=== PATIENT | female | born 1940 | race Hispanic/Latino ===

== ENCOUNTER 2016-11-25 06:38 | Outpatient (CLI) | payer MEDICARE ==
--- NOTE | 2016-11-25 10:28 | PET Report ---
PET/CT:11/25/16 06:38:00 CLINICAL: Breast cancer restaging. RADIOPHARMACEUTICAL: 14.85mCi F18-FDG. COMPARISON: 08/12/16 PET/CT TECHNIQUE- Following intravenous injection of F-18 FDG and an approximately 60 minute uptake period, CT and PET images from the mid skull to the upper thighs were acquired with the patient in the fasted state. No contrast was administered. The CT protocol used for this PET CT study is designed for attenuation correction and anatomic localization of PET abnormalities. This lifestyle coordinator CT is not desired to produce and cannot replace, yvpwq-as-egb-art diagnostic CT scans with specific imaging protocols for different body parts and indications. Plasma glucose at the time of this test: 116g/dl. The standardized uptake values (SUV) are normalized to patient body weight and indicate the highest activity concentration (SUV max) in a given disease site. FINDINGS: Brain--Physiologic FDG uptake in the visualized regions of the brain. Neck--Physiologic FDG uptake . Chest--Physiologic FDG uptake in mediastinal blood pool and myocardium. Lungs--No abnormal uptake. No pulmonary nodule or mass. Stable right upper lobe post radiation scar. Pleura/pericardium--No abnormal uptake. Thoracic nodes--No abnormal uptake. Hepatobiliary--No abnormal uptake. Liver background SUV mean, as a reference for comparing FDG studies, is 4.0 compared to 4.0 on the last exam. No liver mass. Spleen--No abnormal uptake. Pancreas--No abnormal uptake. Adrenal Glands--No abnormal uptake. Kidneys/Ureters/Bladder--No abnormal uptake. Abdominopelvic Nodes--No abnormal uptake. Bowel/Peritoneum/Mesentery--No abnormal uptake. Pelvic organs--No abnormal uptake. Bones/Soft Tissues--No abnormal uptake. No suspicious bone lesions. Other findings: Status post bilateral mastectomy. Left Fsipjm-d-Ughr tip is in the distal left brachycephalic vein at the junction with the SVC. IMPRESSION- Negative study.
== END 2016-11-25 06:39 | disposition home or self-care (01) ==
LOC: PET 06:38
PROVIDERS: ATTEND Internal Medicine Hematology & Oncology
DX: C50.811 Malignant neoplasm of overlapping sites of right female breast (principal); Z90.13 Acquired absence of bilateral breasts and nipples
CPT/HCPCS: 78815; 82962; A9552

== ENCOUNTER 2017-03-03 11:32 | Outpatient (CLI) | payer MEDICARE | END 2017-03-03 11:33 | disposition home or self-care (01) | LOC: PET 11:32 | PROVIDERS: ATTEND Internal Medicine Hematology & Oncology | DX: C50.811 Malignant neoplasm of overlapping sites of right female breast (principal); I10 Essential (primary) hypertension; E78.00 Pure hypercholesterolemia, unspecified; I25.10 Atherosclerotic heart disease of native coronary artery without angina pectoris; Z87.891 Personal history of nicotine dependence; Z79.899 Other long term (current) drug therapy | CPT/HCPCS: 82962 ==

== ENCOUNTER 2017-03-24 10:02 | Outpatient (CLI) | payer MEDICARE ==
--- NOTE | 2017-03-25 08:08 | PET Report ---
PET SB TO MT SUBSEQUENT: HISTORY: Restaging of right breast cancer. TECHNIQUE: 15.75 millicuries F-18 FDG was administered intravenously. Noncontrast CT images and PET images were obtained from the skull base to the proximal thighs. Fused images were reviewed on a workstation. The patient's blood glucose level measured 94. COMPARISON: 11/25/16. FINDINGS: BRAIN: physiologic FDG uptake in the imaged brain. NECK: physiologic FDG uptake. MEDIASTINUM: physiologic FDG uptake. LUNGS: physiologic FDG uptake. PLEURA/PERICARDIUM: physiologic FDG uptake. THORACIC LYMPH NODES: physiologic FDG uptake. CHEST WALL: Bilateral mastectomy changes are stable. No recurrent chest wall mass or abnormal activity. HEPATOBILIARY: physiologic FDG uptake. Mean liver SUV measures 4.5. PANCREAS: physiologic FDG uptake. SPLEEN: physiologic FDG uptake. ADRENAL GLANDS: physiologic FDG uptake. KIDNEYS/RENAL COLLECTING SYSTEMS: physiologic FDG uptake. BOWEL/MESENTERY: physiologic FDG uptake. PELVIC VISCERA: physiologic FDG uptake. ABDOMINAL/PELVIC LYMPH NODES: physiologic FDG uptake. MUSCULOSKELETAL: physiologic FDG uptake. IMPRESSION: Negative PET/CT. No significant change since 11/25/16.
== END 2017-03-24 10:03 | disposition home or self-care (01) ==
LOC: PET 10:02
PROVIDERS: ATTEND Internal Medicine Hematology & Oncology
DX: C50.811 Malignant neoplasm of overlapping sites of right female breast (principal); I10 Essential (primary) hypertension; E78.00 Pure hypercholesterolemia, unspecified; I25.10 Atherosclerotic heart disease of native coronary artery without angina pectoris; Z90.13 Acquired absence of bilateral breasts and nipples; Z87.891 Personal history of nicotine dependence
CPT/HCPCS: 78815; 82962; A9552

== ENCOUNTER 2017-08-25 07:53 | Outpatient (CLI) | payer MEDICARE ==
--- NOTE | 2017-08-26 09:12 | PET Report ---
PET SB TO MT SUBSEQUENT: HISTORY: Restaging of right breast cancer. TECHNIQUE: 12.8 millicuries F-18 FDG was administered intravenously. Noncontrast CT images and PET images were obtained from the skull base to the proximal thighs. Fused images were reviewed on a workstation. The patient's blood glucose level measured 105. COMPARISON: 03/24/17. FINDINGS: BRAIN: physiologic FDG uptake in the imaged brain. NECK: physiologic FDG uptake. CHEST WALL: Stable bilateral mastectomy changes. No recurrent chest wall mass or hypermetabolic activity. MEDIASTINUM: physiologic FDG uptake. LUNGS: physiologic FDG uptake. PLEURA/PERICARDIUM: physiologic FDG uptake. THORACIC LYMPH NODES: physiologic FDG uptake. HEPATOBILIARY: physiologic FDG uptake. Mean liver SUV measures 3.4 as opposed to 4.3 on the previous exam. PANCREAS: physiologic FDG uptake. SPLEEN: physiologic FDG uptake. ADRENAL GLANDS: physiologic FDG uptake. KIDNEYS/RENAL COLLECTING SYSTEMS: physiologic FDG uptake. BOWEL/MESENTERY: physiologic FDG uptake. PELVIC VISCERA: physiologic FDG uptake. ABDOMINAL/PELVIC LYMPH NODES: physiologic FDG uptake. MUSCULOSKELETAL: physiologic FDG uptake. IMPRESSION: Negative PET/CT. No change since 03/24/17.
== END 2017-08-25 07:54 | disposition home or self-care (01) ==
LOC: PET 07:53
PROVIDERS: ATTEND Internal Medicine Hematology & Oncology
DX: C50.811 Malignant neoplasm of overlapping sites of right female breast (principal); Z90.13 Acquired absence of bilateral breasts and nipples; Z87.891 Personal history of nicotine dependence; Z79.899 Other long term (current) drug therapy
CPT/HCPCS: 78815; 82962; A9552

== ENCOUNTER 2018-01-12 09:38 | Outpatient (CLI) | payer MEDICARE ==
--- NOTE | 2018-01-12 14:44 | PET Report ---
PET SB TO MT SUBSEQUENT: HISTORY: Restaging of breast cancer. TECHNIQUE: 15.3 millicuries F-18 FDG was administered intravenously. Noncontrast CT images and PET images were obtained from the skull base to the proximal thighs. Fused images were reviewed on a workstation. The patient's blood glucose level measured 88. COMPARISON: 08/25/17. FINDINGS: BRAIN: physiologic FDG uptake in the imaged brain. NECK: physiologic FDG uptake. CHEST WALL: physiologic FDG uptake. Stable bilateral mastectomy changes. MEDIASTINUM: physiologic FDG uptake. LUNGS: physiologic FDG uptake. PLEURA/PERICARDIUM: physiologic FDG uptake. THORACIC LYMPH NODES: physiologic FDG uptake. HEPATOBILIARY: physiologic FDG uptake. Mean liver SUV measures 3.4 as opposed to 3.5 on the previous exam. PANCREAS: physiologic FDG uptake. SPLEEN: physiologic FDG uptake. ADRENAL GLANDS: physiologic FDG uptake. KIDNEYS/RENAL COLLECTING SYSTEMS: physiologic FDG uptake. BOWEL/MESENTERY: physiologic FDG uptake. PELVIC VISCERA: physiologic FDG uptake. Hysterectomy changes are noted. ABDOMINAL/PELVIC LYMPH NODES: physiologic FDG uptake. MUSCULOSKELETAL: physiologic FDG uptake. IMPRESSION: Negative PET/CT. No change since 08/25/17.
== END 2018-01-12 09:39 | disposition home or self-care (01) ==
LOC: PET 09:38
PROVIDERS: ATTEND Internal Medicine Hematology & Oncology
DX: C50.811 Malignant neoplasm of overlapping sites of right female breast (principal); I10 Essential (primary) hypertension; E78.00 Pure hypercholesterolemia, unspecified; Z90.13 Acquired absence of bilateral breasts and nipples; Z90.710 Acquired absence of both cervix and uterus; Z87.891 Personal history of nicotine dependence
CPT/HCPCS: 78815; 82962; A9552

== ENCOUNTER 2018-10-19 11:10 | Outpatient (CLI) | payer MEDICARE ==
--- NOTE | 2018-10-19 22:15 | Vascular Lab Report ---
PROCEDURE: VL VENOUS DUPLEX UE RT TECHNIQUE: Routine Doppler compression imaging was obtained of the deep venous system of the right u pper extremity extending from the internal jugular vein and subclavian vein distally to include the c ephalic and ulnar veins. Augmentation maneuvers and waveforms were recorded. HISTORY: Pain in right arm COMPARISONS: None FINDINGS: All of the veins compress normally. The waveforms appear normal. IMPRESSION: Normal exam. No evidence of DVT in the right upper extremity.. This document is electronically signed by Jono Manzano MD., October 19 2018 10:13:05 PM ET
--- NOTE | 2018-10-20 08:10 | PET Report ---
PET SB TO MT SUBSEQUENT: HISTORY: Restaging of right breast cancer. TECHNIQUE: 15.1 millicuries F-18 FDG was administered intravenously. Noncontrast CT images and PET images were obtained from the skull base to the proximal thighs. Fused images were reviewed on a workstation. The patient's blood glucose level measured 75. COMPARISON: 07/06/18. FINDINGS: BRAIN: physiologic FDG uptake in the imaged brain. NECK: physiologic FDG uptake. Previously described asymmetric uptake in the submandibular glands has resolved. CHEST WALL: physiologic FDG uptake. Stable bilateral mastectomy changes. No recurrent chest wall mass or thoracic adenopathy. MEDIASTINUM: physiologic FDG uptake. LUNGS: physiologic FDG uptake. Stable appearance of the linear scarring and subtle reticulonodular opacities in the right upper lobe. This is presumably secondary to radiation changes or possibly inflammation. Max SUV in these areas ranges from 1.8-2.6. No new suspicious pulmonary nodule is detected. PLEURA/PERICARDIUM: physiologic FDG uptake. THORACIC LYMPH NODES: physiologic FDG uptake. HEPATOBILIARY: physiologic FDG uptake. Mean liver SUV measures 3.5. PANCREAS: physiologic FDG uptake. SPLEEN: physiologic FDG uptake. ADRENAL GLANDS: physiologic FDG uptake. KIDNEYS/RENAL COLLECTING SYSTEMS: physiologic FDG uptake. BOWEL/MESENTERY: physiologic FDG uptake. PELVIC VISCERA: physiologic FDG uptake. ABDOMINAL/PELVIC LYMPH NODES: physiologic FDG uptake. MUSCULOSKELETAL: physiologic FDG uptake. IMPRESSION: No significant change since 07/06/18. No evidence for disease recurrence or metastasis. Stable right upper lobe findings as outlined above.
== END 2018-10-19 11:11 | disposition home or self-care (01) ==
LOC: PET 11:10
PROVIDERS: ATTEND Internal Medicine Hematology & Oncology
DX: C50.811 Malignant neoplasm of overlapping sites of right female breast (principal); I10 Essential (primary) hypertension; E78.00 Pure hypercholesterolemia, unspecified; Z90.710 Acquired absence of both cervix and uterus; Z87.891 Personal history of nicotine dependence
CPT/HCPCS: 78815; 82962; 93971; A9552

== ENCOUNTER 2019-01-11 08:58 | Outpatient (CLI) | payer MEDICARE ==
--- NOTE | 2019-01-17 08:51 | PET Report ---
PET/CT:01/11/19 08:58:00 CLINICAL: Breast cancer restaging. RADIOPHARMACEUTICAL: 14.197mCi F18-FDG. COMPARISON: 10/19/18 PET/CT TECHNIQUE- Following intravenous injection of F-18 FDG and an approximately 60 minute uptake period, CT and PET images from the mid skull to the upper thighs were acquired with the patient in the fasted state. No contrast was administered. The CT protocol used for this PET CT study is designed for attenuation correction and anatomic localization of PET abnormalities. This welt slasher CT is not desired to produce and cannot replace, loxxf-oy-gga-art diagnostic CT scans with specific imaging protocols for different body parts and indications. Plasma glucose at the time of this test: 99g/dl. The standardized uptake values (SUV) are normalized to patient body weight and indicate the highest activity concentration (SUV max) in a given disease site. FINDINGS: Brain--Physiologic FDG uptake in the visualized regions of the brain. Neck--Physiologic FDG uptake in mucosal structures. No mass or lymphadenopathy. Chest--Physiologic FDG uptake in mediastinal blood pool and myocardium. Status post bilateral mastectomy. Lungs--No abnormal uptake. Stable right upper lobe non-FDG avid reticulonodular lung opacities. No pulmonary nodule or mass. Pleura/pericardium--No abnormal uptake. Thoracic nodes--No abnormal uptake. Hepatobiliary--No abnormal uptake. Liver background SUV mean, as a reference for comparing FDG studies, is 4.0 compared to 3.5 on the last exam. No liver mass. Spleen--No abnormal uptake. Pancreas--No abnormal uptake. Adrenal Glands--No abnormal uptake. Kidneys/Ureters/Bladder--No abnormal uptake. Abdominopelvic Nodes--No abnormal uptake. Bowel/Peritoneum/Mesentery--No abnormal uptake. Pelvic organs--No abnormal uptake. Bones/Soft Tissues--No abnormal uptake and no suspicious bone lesion. IMPRESSION- Negative study.No evidence of disease recurrence or metastasis. This
== END 2019-01-11 08:59 | disposition home or self-care (01) ==
LOC: PET 08:58
PROVIDERS: ATTEND Internal Medicine Hematology & Oncology
DX: C50.811 Malignant neoplasm of overlapping sites of right female breast (principal); E78.00 Pure hypercholesterolemia, unspecified; I10 Essential (primary) hypertension; Z90.710 Acquired absence of both cervix and uterus
CPT/HCPCS: 78815; 82962; A9552

== ENCOUNTER 2019-05-03 07:56 | Outpatient (CLI) | payer MEDICARE ==
--- NOTE | 2019-05-03 11:10 | PET Report ---
PET/CT HISTORY: C50.811. Restaging of breast cancer TECHNIQUE: The patient's fasting blood glucose was 102. The patient weighed 150 lbs. The patient w as injected with 14.6 mCi of FDG in the left hand at 0835 hours and imaging was started at 0923 hours . The patient was imaged from the skull base to the thighs. All CT scans at this location are perfor med using CT dose reduction for ALARA by means of automated exposure control. Images were reviewed on a workstation. COMPARISON: 01/11/2019 FINDINGS: IMAGED BRAIN: [Physiologic FDG uptake] NECK: [Physiologic FDG uptake] CHEST WALL: [Physiologic FDG uptake]. Stable bilateral mastectomy changes. MEDIASTINUM: [Physiologic FDG uptake] LUNGS: [Physiologic FDG uptake] HEPATOBILIARY: [Physiologic FDG uptake]. Liver uptake measures 4.2 as opposed to 4.0 on the previous exam. PANCREAS: [Physiologic FDG uptake SPLEEN: [Physiologic FDG uptake] KIDNEYS/BLADDER: [Physiologic FDG uptake] ADRENAL GLANDS: [Physiologic FDG uptake] GI/MESENTERY: [Physiologic FDG uptake] PELVIC VISCERA: [Physiologic FDG uptake]. Hysterectomy changes are noted. LYMPH NODES: [Physiologic FDG uptake]. No lymphadenopathy is identified. OSSEOUS STRUCTURES: [Physiologic FDG uptake] ADDITIONAL FINDINGS: [None] IMPRESSION: Negative PET CT. No evidence for disease recurrence or metastasis. Stable findings since 01/11/2019. Signer Name: Martin Todd Jr, MD Signed: 05/03/2019 11:05 AM Workstation Name: [id number]
== END 2019-05-03 07:57 | disposition home or self-care (01) ==
LOC: PET 07:56
PROVIDERS: ATTEND Internal Medicine Hematology & Oncology
DX: C50.811 Malignant neoplasm of overlapping sites of right female breast (principal); E78.5 Hyperlipidemia, unspecified
CPT/HCPCS: 78815; 82962; A9552

== ENCOUNTER 2019-10-11 08:30 | Outpatient (CLI) | payer MEDICARE ==
--- NOTE | 2019-10-11 11:38 | PET Report ---
PET-CT SCAN INDICATION / CLINICAL INFORMATION: History of right breast cancer.. COMPARISON: 05/03/2019, 01/11/2019, 10/19/2018. TECHNIQUE: Tumor imaging, positron emission tomography (PET) with concurrently acquired computed tomography (CT) for attenuation correction and anatomical localization; Skull Base to Mid Thigh DOSE: 11.69 mCi F-18 FDG was administered intravenously per protocol in the left hand. GLUCOSE: Patient's blood glucose at that time was 63 mg/dL. UPTAKE TIME: PET scan performed approximately 60 minutes after radiotracer administration. CT SCAN DESCRIPTION: No oral or IV contrast.. All CT scans at this location are performed using CT do se reduction for ALARA by means of automated exposure control. COMPARISON: None available. FINDINGS: Background right hepatic lobe activity has a maximum SUV of 4. HEAD/NECK: No abnormal radiotracer uptake in the neck. Physiologic tonsillar and salivary gland activ ity noted. CHEST: No abnormal radiotracer uptake in the chest. Physiologic cardiac activity noted. Stable areas of reticular densities within the posterior and anterior right upper lobe. The appearance is favored to represent radiation treatment related changes given the patient's history of right breast cancer. Relative stability over multiple prior exams would support a benign etiology. Patient is status post bilateral mastectomies. ABDOMEN / PELVIS: No abnormal radiotracer uptake in the abdomen. Physiologic stomach and bowel activi ty noted. SKELETAL STRUCTURES: No hypermetabolic bone lesions. ADDITIONAL FINDINGS: No significant additional findings. IMPRESSION: Stable PET CT. No evidence of disease recurrence or metastases. Signer Name: Mumtaz Egan MD Signed: 10/11/2019 11:34 AM Workstation Name: [id number]
== END 2019-10-11 08:31 | disposition home or self-care (01) ==
LOC: PET 08:30
PROVIDERS: ATTEND Internal Medicine Hematology & Oncology
DX: C50.811 Malignant neoplasm of overlapping sites of right female breast (principal)
CPT/HCPCS: 78815; 82962; A9552

== ENCOUNTER 2020-03-13 07:13 | Outpatient (CLI) | payer MEDICARE ==
--- NOTE | 2020-03-13 10:45 | PET Report ---
PET/CT HISTORY: C50.811. Restaging of breast cancer TECHNIQUE: The patient's fasting blood glucose was 102. The patient weighed 150 lbs. The patient w as injected with 14.0 mCi of FDG in the left wrist at 0747 hours and imaging was started at 0836 hour s. The patient was imaged from the skull base to the thighs. All CT scans at this location are perfo rmed using CT dose reduction for ALARA by means of automated exposure control. Images were reviewed o n a workstation. COMPARISON: 10/11/2019 FINDINGS: IMAGED BRAIN: Physiologic FDG uptake. NECK: Physiologic FDG uptake. CHEST WALL: Physiologic FDG uptake. Stable bilateral mastectomy changes. MEDIASTINUM: Physiologic FDG uptake. LUNGS: Physiologic FDG uptake. Minimal interstitial prominence in the right upper lobe is unchanged and may represent chronic scarring or radiation changes. No suspicious pulmonary lesion has developed . HEPATOBILIARY: Physiologic FDG uptake. Background liver uptake measures a max SUV of 4.3 as opposed to 4.0 on the previous exam. PANCREAS: Physiologic FDG uptake. SPLEEN: Physiologic FDG uptake. KIDNEYS/BLADDER: Physiologic FDG uptake. ADRENAL GLANDS: Physiologic FDG uptake. GI/MESENTERY: Physiologic FDG uptake. PELVIC VISCERA: Physiologic FDG uptake. Hysterectomy changes. LYMPH NODES: Physiologic FDG uptake. OSSEOUS STRUCTURES: Physiologic FDG uptake. ADDITIONAL FINDINGS: None. IMPRESSION: Negative PET CT. Stable findings since 10/11/2019. No evidence for disease recurrence or metastasis. Signer Name: Martin Todd Jr, MD Signed: 03/13/2020 10:40 AM Workstation Name: [id number]
== END 2020-03-13 07:14 | disposition home or self-care (01) ==
LOC: PET 07:13
PROVIDERS: ATTEND Internal Medicine Hematology & Oncology
DX: C50.811 Malignant neoplasm of overlapping sites of right female breast (principal)
CPT/HCPCS: 78815; 82962; A9552

== ENCOUNTER 2020-06-12 06:42 | Outpatient (CLI) | payer MEDICARE ==
--- NOTE | 2020-06-12 11:55 | PET Report ---
PET sb to mt subsequent INDICATION / CLINICAL INFORMATION: Restaging breast cancer. TRACER: F-18 FDG 15.4 mCi IV at 9:08 AM on 06/12/2020. Blood glucose is 95 mg/dL. TECHNIQUE: Following injection of the above tracer and appropriate delay, PET imaging was performed from the [facility] ll base to the upper thighs. CT imaging was performed the same time for the purposes of anatomic loca lization. All CT scans at this location are performed using CT dose reduction for ALARA by means of a utomated exposure control. COMPARISON: PET/CT 03/13/2020. FINDINGS: HEAD/NECK: No abnormal uptake. CHEST: No abnormal uptake. ABDOMEN/PELVIS: No abnormal uptake. UPPER LEGS: No abnormal uptake. INCIDENTAL CT FINDINGS: Previous bilateral mastectomy. Inflammatory appearing nodularity within the lungs without localized u ptake. Noninflamed colonic diverticulosis. Previous hysterectomy. IMPRESSION: Negative for local recurrence or distant metastatic disease. Signer Name: Raudel Chua MD Signed: 06/12/2020 11:51 AM Workstation Name: [id number]
== END 2020-06-12 06:43 | disposition home or self-care (01) ==
LOC: PET 06:42
PROVIDERS: ATTEND Internal Medicine Hematology & Oncology
DX: C50.811 Malignant neoplasm of overlapping sites of right female breast (principal)
CPT/HCPCS: 78815; A9552

== ENCOUNTER 2020-08-28 06:29 | Outpatient (CLI) | payer MEDICARE ==
--- NOTE | 2020-08-28 11:32 | PET Report ---
PET-CT SCAN INDICATION / CLINICAL INFORMATION: C50.811. Restaging breast cancer TECHNIQUE: Tumor imaging, positron emission tomography (PET) with concurrently acquired computed tomography (CT) for attenuation correction and anatomical localization; Skull Base to Mid Thigh - DOSE: 14.46 mCi F-18 FDG was administered IV per protocol - GLUCOSE: Patient's blood glucose at that time was (mg/dL): 89 - UPTAKE TIME: PET scan performed approximately 60 minutes after radiotracer administration. - CT SCAN DESCRIPTION: No oral or IV contrast. All CT scans at this location are performed using CT d ose reduction for ALARA by means of automated exposure control. COMPARISON: PET/CT from 06/12/2020. FINDINGS: HEAD / NECK: No abnormal radiotracer uptake in the neck. CHEST: Minimal interstitial prominence in nodularity in the right upper lobe is similar, likely repre senting chronic scarring or radiation changes. No significant associated FDG uptake (maximum SUV harika ures 2.9; physiologic liver uptake measures 3.9). Single bilateral mastectomy changes. ABDOMEN / PELVIS: No abnormal radiotracer uptake in the abdomen. Incidentally, there is a stable santy dder diverticulum and left parapelvic cysts. Colonic diverticulosis without CT evidence of diverticul itis. LOWER EXTREMITIES: No abnormal radiotracer uptake in the visualized lower extremities. SKELETAL STRUCTURES: No hypermetabolic bone lesions. ADDITIONAL FINDINGS: No additional significant findings. IMPRESSION: Negative PET. No evidence of recurrent or metastatic disease. Signer Name: Pierre Turner MD Signed: 08/28/2020 11:27 AM Workstation Name: [id number]
== END 2020-08-28 06:30 | disposition home or self-care (01) ==
LOC: PET 06:29
PROVIDERS: ATTEND Internal Medicine Hematology & Oncology
DX: C50.811 Malignant neoplasm of overlapping sites of right female breast (principal); N28.1 Cyst of kidney, acquired; N64.89 Other specified disorders of breast; K57.30 Diverticulosis of large intestine without perforation or abscess without bleeding
CPT/HCPCS: 78815; 82962; A9552

== ENCOUNTER 2020-12-04 06:06 | Outpatient (CLI) | payer MEDICARE | END 2020-12-04 06:07 | disposition home or self-care (01) | LOC: PET 06:06 | PROVIDERS: ATTEND Internal Medicine Hematology & Oncology | DX: C50.811 Malignant neoplasm of overlapping sites of right female breast (principal); I25.10 Atherosclerotic heart disease of native coronary artery without angina pectoris; I70.0 Atherosclerosis of aorta; K57.30 Diverticulosis of large intestine without perforation or abscess without bleeding | CPT/HCPCS: 78815; 82962; A9552 ==

== ENCOUNTER 2021-05-07 08:03 | Outpatient (CLI) | payer MEDICARE ==
--- NOTE | 2021-05-07 10:52 | PET Report ---
PET sb to mt subsequent INDICATION / CLINICAL INFORMATION: Restaging breast cancer. TRACER: F-18 FDG 15 mCi IV injection on 05/07/2021. Blood glucose is 89 mg/dL. TECHNIQUE: Following injection of the above tracer and appropriate delay, PET imaging was performed from the [facility] ll base to the upper thighs. CT imaging was performed same time for the purposes of anatomic localiza tion. All CT examinations at this institution utilize dose reduction: Automated exposure control. COMPARISON: PET/CT 12/04/2020 FINDINGS: HEAD/NECK: No abnormal uptake. CHEST: Scarring and inflammatory appearing change at the right upper lobe remains. Mild increased pleural th ickening at the right upper lobe laterally has low-grade activity with maximal SUV of 2.6. ABDOMEN/PELVIS: No abnormal uptake. UPPER LEGS: No abnormal uptake. INCIDENTAL CT FINDINGS: Previous hysterectomy and bilateral mastectomy. IMPRESSION: 1. New low-grade uptake right upper lobe laterally is favored to be inflammatory. 2. No new suspicious abnormality. Signer Name: Raudel Chua MD Signed: 05/07/2021 10:48 AM Workstation Name: [id number]
== END 2021-05-07 08:04 | disposition home or self-care (01) ==
LOC: PET 08:03
PROVIDERS: ATTEND Internal Medicine Hematology & Oncology
DX: C50.811 Malignant neoplasm of overlapping sites of right female breast (principal); Z90.12 Acquired absence of left breast and nipple; Z90.11 Acquired absence of right breast and nipple; Z90.710 Acquired absence of both cervix and uterus
CPT/HCPCS: 78815; 82962; A9552

== ENCOUNTER 2021-08-06 08:12 | Outpatient (CLI) | payer MEDICARE ==
--- NOTE | 2021-08-06 11:26 | PET Report ---
PET/CT HISTORY: C50.811. Restaging of breast cancer TECHNIQUE: The patient's fasting blood glucose was 90. The patient weighed 145 lbs. The patient wa s injected with 13.4 mCi of FDG in the left hand at 0852 hours and imaging was started at 0940 hours. The patient was imaged from the skull base to the thighs. All CT scans at this location are perform ed using CT dose reduction for ALARA by means of automated exposure control. Images were reviewed on a workstation. COMPARISON: 05/07/2021 FINDINGS: IMAGED BRAIN: Physiologic FDG uptake. NECK: Physiologic FDG uptake. CHEST WALL: Physiologic FDG uptake. MEDIASTINUM: Physiologic FDG uptake. LUNGS: Physiologic FDG uptake. Previously described subtle uptake in the lateral right upper lobe wi th SUV measuring 2.6 has resolved. No new areas of increased uptake in the lungs. HEPATOBILIARY: Physiologic FDG uptake. PANCREAS: Physiologic FDG uptake. SPLEEN: Physiologic FDG uptake. KIDNEYS/BLADDER: Physiologic FDG uptake. ADRENAL GLANDS: Physiologic FDG uptake. GI/MESENTERY: Physiologic FDG uptake. PELVIC VISCERA: Physiologic FDG uptake. LYMPH NODES: Physiologic FDG uptake. OSSEOUS STRUCTURES: Physiologic FDG uptake. ADDITIONAL FINDINGS: None. IMPRESSION: Negative PET/CT. No evidence for disease recurrence or metastasis. Previously described focus of mil d increased uptake in the lateral right upper lobe has resolved since 05/07/2021 exam. Signer Name: Martin Todd Jr, MD Signed: 08/06/2021 11:21 AM Workstation Name: [id number]
== END 2021-08-06 08:13 | disposition home or self-care (01) ==
LOC: PET 08:12
PROVIDERS: ATTEND Internal Medicine Hematology & Oncology
DX: C50.811 Malignant neoplasm of overlapping sites of right female breast (principal)
CPT/HCPCS: 78815; 82962; A9552

== ENCOUNTER 2021-10-22 10:50 | Outpatient (CLI) | payer MEDICARE ==
--- NOTE | 2021-10-23 13:05 | PET Report ---
PET/CT HISTORY: C50.811. Restaging of right breast cancer TECHNIQUE: The patient's fasting blood glucose was 73. The patient weighed 144 lbs. The patient wa s injected with 12.1 mCi of FDG in the left hand at 1208 hours and imaging was started at 1257 hours. The patient was imaged from the skull base to the thighs. All CT scans at this location are perform ed using CT dose reduction for ALARA by means of automated exposure control. Images were reviewed on a workstation. COMPARISON: 08/06/2021 FINDINGS: IMAGED BRAIN: Physiologic FDG uptake. NECK: Physiologic FDG uptake. CHEST WALL: Physiologic FDG uptake. Stable bilateral mastectomy changes with no recurrent chest wall mass or extra thoracic adenopathy. MEDIASTINUM: Physiologic FDG uptake. LUNGS: Physiologic FDG uptake. Stable radiation changes in the right anterior lung. Minimal peribron chial opacity has developed in the lingula which appears inflammatory in nature. No suspicious nodule or mass is detected. HEPATOBILIARY: Physiologic FDG uptake. Background liver SUV in the liver measures 4.5. PANCREAS: Physiologic FDG uptake. SPLEEN: Physiologic FDG uptake. KIDNEYS/BLADDER: Physiologic FDG uptake. ADRENAL GLANDS: Physiologic FDG uptake. GI/MESENTERY: Physiologic FDG uptake. PELVIC VISCERA: Physiologic FDG uptake. LYMPH NODES: Physiologic FDG uptake. OSSEOUS STRUCTURES: Physiologic FDG uptake. No suspicious bony lesion is detected. ADDITIONAL FINDINGS: None. IMPRESSION: Stable findings since 08/06/2022. No evidence for disease recurrence or metastasis. Signer Name: Martin Todd Jr, MD Signed: 10/23/2021 1:01 PM Workstation Name: [id number]
== END 2021-10-22 10:51 | disposition home or self-care (01) ==
LOC: PET 10:50
PROVIDERS: ATTEND Internal Medicine Hematology & Oncology
DX: C50.811 Malignant neoplasm of overlapping sites of right female breast (principal); Z79.899 Other long term (current) drug therapy
CPT/HCPCS: 78815; 82962; A9552

== ENCOUNTER 2022-01-28 06:45 | Outpatient (CLI) | payer MEDICARE ==
--- NOTE | 2022-01-28 11:10 | PET Report ---
PET/CT HISTORY: C50.811. Restaging of right breast cancer TECHNIQUE: The patient's fasting blood glucose was 98. The patient weighed 144 lbs. The patient wa s injected with 14.9 mCi of FDG in the left hand at 0852 hours and imaging was started at 0949 hours. The patient was imaged from the skull base to the thighs. All CT scans at this location are perform ed using CT dose reduction for ALARA by means of automated exposure control. Images were reviewed on a workstation. COMPARISON: 10/22/2021 FINDINGS: IMAGED BRAIN: Physiologic FDG uptake. NECK: Physiologic FDG uptake. CHEST WALL: Physiologic FDG uptake. Stable bilateral mastectomy changes with no evidence for recurre nt breast or chest wall mass. MEDIASTINUM: Physiologic FDG uptake. LUNGS: Patchy tree-in-bud nodularity has developed/increased in both lungs since the previous exam. On 10/22/2021 exam, mild tree-in-bud nodularity was noted in the right apical region and lingula regio n. These areas of tree-in-bud nodularity appear slightly increased in size and there are new areas of tree-in-bud nodularity in both lower lobes on today's exam. Max SUV in these areas range from 2.7-4. 1. Focal platelike subpleural density has developed in the anterior right upper lobe measuring up to 3.3 x 0.7 cm in axial plane with max SUV measuring 4.0. A smaller area of subpleural density has deve loped in the lateral right lower lobe measuring 1.9 x 1.1 cm with max SUV measuring 3.0. This may rep resent subpleural scarring or atelectasis. This could also be related to radiation changes. No discre te pulmonary nodule or mass is detected on the CT images. HEPATOBILIARY: Physiologic FDG uptake. Liver SUV measures 4.1 as opposed to 4.5 on the previous exam . PANCREAS: Physiologic FDG uptake. SPLEEN: Physiologic FDG uptake. KIDNEYS/BLADDER: Physiologic FDG uptake. ADRENAL GLANDS: Physiologic FDG uptake. GI/MESENTERY: Physiologic FDG uptake. PELVIC VISCERA: Physiologic FDG uptake. LYMPH NODES: Physiologic FDG uptake. OSSEOUS STRUCTURES: Physiologic FDG uptake. ADDITIONAL FINDINGS: None. IMPRESSION: Patchy lung infiltration with tree-in-bud nodularity is seen on today's exam and increased since 09/24 exam. This appears inflammatory in nature such as GAYATHRI infection. Standard uptake values are yarelis rderline to mildly elevated in these areas as noted above. No discrete pulmonary nodule or mass is de tected on the CT images. I suspect these findings are inflammatory in nature and not related to recur rent or metastatic disease. Close interval follow-up is recommended. Otherwise no change since 022. Signer Name: Martin Todd Jr, MD Signed: 01/28/2022 11:05 AM Workstation Name: [id number]
== END 2022-01-28 06:46 | disposition home or self-care (01) ==
LOC: PET 06:45
PROVIDERS: ATTEND Internal Medicine Hematology & Oncology
DX: T82.598A Other mechanical complication of other cardiac and vascular devices and implants, initial encounter (principal); C50.811 Malignant neoplasm of overlapping sites of right female breast; R91.8 Other nonspecific abnormal finding of lung field; M79.89 Other specified soft tissue disorders; D64.9 Anemia, unspecified; R63.4 Abnormal weight loss; N28.9 Disorder of kidney and ureter, unspecified; I10 Essential (primary) hypertension; Z79.811 Long term (current) use of aromatase inhibitors; C79.51 Secondary malignant neoplasm of bone; E86.9 Volume depletion, unspecified; I45.9 Conduction disorder, unspecified; E83.52 Hypercalcemia; Z90.13 Acquired absence of bilateral breasts and nipples; Z41.9 Encounter for procedure for purposes other than remedying health state, unspecified; Z23 Encounter for immunization
CPT/HCPCS: 78815; 82962; A9552